=== PATIENT | female | born 1975 | race Caucasian/White ===

== ENCOUNTER 2017-03-22 23:46 | Emergency (ER) | payer OTHER ==
[~2017-03-22] VITALS: Ht 172.7 cm; Wt 104.3 kg
[~2017-03-22 23:46] MED LIST: BIRTH CONTROL; COLACE100 MG PO; CRUTCH1 EACH; CRUTCH1 EACH MC; DICLOFENAC SODI75 MG PO; EC-NAPROSYN500 MG PO; FLEXERIL10 MG PO; GABAPENTIN300 MG PO; IBUPROFEN200 M1 PO; IBUPROFEN400 MG PO; IBUPROFEN600 MG PO; METHOCARBAMOL500 MG PO; METHOCARBAMOL750 MG PO; NAPROSYN500 MG PO; NORCO 10-325 T1 EACH PO; NORCO 5-325 TA1 EACH PO; OMEPRAZOLE20 MG PO; PENICILLIN V P500 MG PO; PEPCID20 MG PO; PROVENTIL HFA6.7 GM INH; TESSALON PERLE100 MG PO; TRAMADOL HCL50 MG PO; TYLENOL EXTRA500 MG PO
[2017-03-23] MEDS ORDERED: TRAMADOL HCL50 MG PO (01:52)
== END 2017-03-23 02:03 | disposition home or self-care (01) ==
LOC: ED 23:46
DX: S00.93XA Contusion of unspecified part of head, initial encounter (principal); J45.909 Unspecified asthma, uncomplicated; F17.200 Nicotine dependence, unspecified, uncomplicated; Z79.899 Other long term (current) drug therapy; W22.8XXA Striking against or struck by other objects, initial encounter
CPT/HCPCS: 70450; 70486; 99284

== ENCOUNTER 2020-10-17 21:51 | Emergency (ER) | payer OTHER ==
[~2020-10-17] VITALS: Ht 172.7 cm; Wt 104.3 kg
--- OUTSIDE RECORDS SUMMARY | 2020-10-17 21:54 | XMS ---
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 ( 09/28/2020 ) Riki VISIT COUNT (12 MO.) 1 [facility] TOTAL 1 NOTE: Visits indicate total known visits. ED/UCC VISIT TRACKING (12 MO.) 10/17/2020 21:[address] [facility] [place] TYPE: Emergency COMPLAINT: - NECK INJURY INPATIENT VISIT TRACKING (12 MO.) No inpatient visits to display in this time frame [email or web address]
[2020-10-17] MEDS ORDERED: SUBOXONE 8 MG-1 EAC1 SL (22:07)
[2020-10-17] MEDS ORDERED: CYCLOBENZAPRINE10 MG PO (22:49)
== END 2020-10-17 23:16 | disposition home or self-care (01) ==
LOC: ED 21:51
DX: S16.1XXA Strain of muscle, fascia and tendon at neck level, initial encounter (principal); V48.6XXA Car passenger injured in noncollision transport accident in traffic accident, initial encounter; J45.909 Unspecified asthma, uncomplicated; F17.200 Nicotine dependence, unspecified, uncomplicated; Z79.899 Other long term (current) drug therapy
CPT/HCPCS: 72125; 99283-25

== ENCOUNTER 2021-03-04 06:48 | Emergency (ER) | payer OTHER ==
[~2021-03-04] VITALS: Ht 172.7 cm; Wt 104.3 kg
[~2021-03-04 06:48] MED LIST changes: +CYCLOBENZAPRINE10 MG PO; +SUBOXONE 8 MG-1 EAC1 SL
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
[2021-03-04] MEDS ORDERED: OMEPRAZOLE20 MG PO (07:08)
[2021-03-04] MEDS ORDERED: METHOCARBAMOL750 MG PO (07:08)
[2021-03-04] MEDS ORDERED: PREDNISONE20 MG PO (08:37)
[2021-03-04] MEDS ORDERED: ONDANSETRON ODT8 MG PO (08:37)
== END 2021-03-04 09:22 | disposition home or self-care (01) ==
LOC: ED 06:48
DX: J45.901 Unspecified asthma with (acute) exacerbation (principal); B34.9 Viral infection, unspecified; Z20.822 Contact with and (suspected) exposure to COVID-19; F17.200 Nicotine dependence, unspecified, uncomplicated; Z79.899 Other long term (current) drug therapy
CPT/HCPCS: 71045; 80053; 85025; 94640; 96374; 96375; 99284-25; C9803; J1885; J2405; J2930; J7030; U0003

== ENCOUNTER 2021-03-11 18:10 | Emergency (ER) | payer OTHER ==
[~2021-03-11] VITALS: Ht 172.7 cm; Wt 104.3 kg
[~2021-03-11 18:10] MED LIST changes: +ONDANSETRON ODT8 MG PO; +PREDNISONE20 MG PO
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
[2021-03-11] MEDS ORDERED: PROMETHAZINE HC25 M1 PO (20:57)
== END 2021-03-11 21:39 | disposition home or self-care (01) ==
LOC: ED 18:10
DX: A08.4 Viral intestinal infection, unspecified (principal); J45.909 Unspecified asthma, uncomplicated; F17.200 Nicotine dependence, unspecified, uncomplicated; Z79.899 Other long term (current) drug therapy; Z79.52 Long term (current) use of systemic steroids
CPT/HCPCS: 71045; 74176; 74177; 80053; 81001; 83690; 84703; 85025; 96374; 99284-25; C9113

== ENCOUNTER 2022-05-07 17:40 | Emergency (ER) | payer OTHER ==
[~2022-05-07] VITALS: Ht 172.7 cm; Wt 124.7 kg
[~2022-05-07 17:40] MED LIST changes: +PROMETHAZINE HC25 M1 PO
--- OUTSIDE RECORDS SUMMARY | 2022-05-07 17:42 | XMS ---
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 \T\middot;\T\nbsp; [facility] CAN SEE PATIENTS SAME DAY FOR APTS IF PATIENT CALLS FIRST THING IN THE MORNING. E.D. VISIT COUNT (12 MO.) 1 [facility] TOTAL 1 NOTE: Visits indicate total known visits. ED/UCC VISIT TRACKING (12 MO.) 05/07/2022 17:41 [facility] [place] TYPE: Emergency COMPLAINT: - VOMITING INPATIENT VISIT TRACKING (12 MO.) No inpatient visits to display in this time frame [email or web address]
[2022-05-07] MEDS ORDERED: K-TAB ER20 MEQ PO (21:08)
[2022-05-07] MEDS ORDERED: MAGOX 400400 MG PO (21:08)
== END 2022-05-07 21:20 | disposition home or self-care (01) ==
LOC: ED 17:40
DX: E86.0 Dehydration (principal); E87.6 Hypokalemia; R10.84 Generalized abdominal pain; J45.909 Unspecified asthma, uncomplicated; F17.200 Nicotine dependence, unspecified, uncomplicated; Z79.899 Other long term (current) drug therapy
CPT/HCPCS: 36415; 80053; 81001; 83690; 83735; 85025; 96361; 96374; 96375; 99284-25; A9270; J1790; J1885; J2405; J7030

== ENCOUNTER 2024-01-11 16:39 | Emergency (ER) | payer SELFPAY ==
[~2024-01-11] VITALS: Ht 172.7 cm; Wt 92.2 kg
[~2024-01-11 16:39] MED LIST changes: +K-TAB ER20 MEQ PO; +MAGOX 400400 MG PO
[2024-01-11] MEDS ORDERED: IBUPROFEN 600 MG TAB PO ONE (18:15)
[2024-01-11] MEDS ORDERED: HYDROCODONE/ACETA 7.5/325 TAB PO ONE (18:15)
[2024-01-11] MEDS ORDERED: HYDROCODON-ACE1 EA11 PO (18:54)
[2024-01-11 18:55] VITALS: BP 137/84
== END 2024-01-11 18:55 | disposition home or self-care (01) ==
LOC: ED 16:39
DX: S62.316A Displaced fracture of base of fifth metacarpal bone, right hand, initial encounter for closed fracture (principal); W22.8XXA Striking against or struck by other objects, initial encounter; F17.200 Nicotine dependence, unspecified, uncomplicated; Z79.899 Other long term (current) drug therapy
CPT/HCPCS: 29125; 73130; 99283-25; A9270

== ENCOUNTER 2024-02-02 12:21 | Emergency (ER) | payer OTHER ==
[~2024-02-02] VITALS: Ht 172.7 cm; Wt 88.0 kg
[~2024-02-02 12:21] MED LIST changes: +HYDROCODON-ACE1 EA11 PO
[2024-02-02] MEDS ORDERED: HYDROmorphone HCL 1 MG/ML SYR IM ONE (12:45)
[2024-02-02 13:00] LABS: BILIRUBIN, URINE NEGATIVE (negative); BLOOD/HGB, URINE NEGATIVE (Negative); KETONE, URINE NEGATIVE (Negative); LEUK ESTERASE, URINE NEGATIVE (negative); NITRITE, URINE NEGATIVE (negative)
[2024-02-02 13:05] LABS: BACTERIA, URINE NONE SEEN /hpf (negative); CASTS, URINE NONE SEEN \\lpf; COLLECTION TYPE, URINE CLEAN CATCH; CRYSTALS, URINE NONE SEEN (0-1+); EPITHELIAL CELLS, URINE SQUAMOUS 1+ /lpf (0-1+); RED BLOOD CELLS, URINE 0-1 /hpf (0-5); REFLEX CULTURE, URINE No (No); WHITE BLOOD CELLS, URINE 0-1 /HPF (0-5)
[2024-02-02] MEDS ORDERED: LIDODERM1 EACH TOP (13:45)
[2024-02-02] MEDS ORDERED: LIDOCAINE HCL 4% 1 EACH PATCH TD ONE (13:45)
[2024-02-02 13:55] VITALS: BP 109/65
== END 2024-02-02 14:00 | disposition home or self-care (01) ==
LOC: ED 12:21
PROVIDERS: Family Medicine
DX: S20.211A Contusion of right front wall of thorax, initial encounter (principal); W01.0XXA Fall on same level from slipping, tripping and stumbling without subsequent striking against object, initial encounter; J45.909 Unspecified asthma, uncomplicated; F17.200 Nicotine dependence, unspecified, uncomplicated; Z79.899 Other long term (current) drug therapy
CPT/HCPCS: 71250; 81001; 84703; 96372; 99284-25; A9270; J1170

== ENCOUNTER 2024-05-24 18:12 | Emergency (ER) | payer OTHER ==
[~2024-05-24] VITALS: Ht 172.7 cm; Wt 78.3 kg
[~2024-05-24 18:12] MED LIST changes: +LIDODERM1 EACH TOP
[2024-05-24 19:24] LABS: INFLUENZA B NAA NEGATIVE (NEGATIVE); RESPIRATORY SYNCYTIAL VIR NAA NEGATIVE (NEGATIVE)
[2024-05-24 20:53] VITALS: BP 133/85
== END 2024-05-24 20:55 | disposition home or self-care (01) ==
LOC: ED 18:12
PROVIDERS: Emergency Medicine
DX: J02.8 Acute pharyngitis due to other specified organisms (principal); B97.89 Other viral agents as the cause of diseases classified elsewhere; J45.909 Unspecified asthma, uncomplicated; F17.200 Nicotine dependence, unspecified, uncomplicated
CPT/HCPCS: 87502; 99283; U0002